=== PATIENT | male | born 1985 | race Caucasian/White ===

== ENCOUNTER 2018-04-15 09:10 | Emergency (ER) | payer SELFPAY ==
--- NOTE | 2018-04-15 09:41 | EDM.PDOC ---
ED HPI GENERAL MEDICAL PROBLEM - General Chief Complaint: Skin Complaint Stated Complaint: RASH ALL OVER PT'S BODY Time Seen by Provider: 04/15/18 09:21 Source of Information: Reports: Patient History Limitations: Reports: No Limitations - History of Present Illness INITIAL COMMENTS - FREE TEXT/NARRATIVE: Guillaume Espinosa is a 32 y/o male presenting to the ER complaining of a rash. He states that he noticed on Wednesday a small rash showing up on anterior chest area and then has spread in dermatomal pattern to the back. Burning sensation and painful. Has tried Aleve with minimal relieve. No sick contacts. No chest pain , radiation to left neck, arm. No vomiting or abdominal pain. No rashes anywhere else. No new joint pains. Right Chest Pain Score (Numeric/FACES): 8 - Related Data Allergies Allergy/AdvReac Type Severity Reaction Status Date / Time No Known Allergies Allergy Verified 04/15/18 09:22 Home Meds: Home Meds Lidocaine [Lidocaine Pain Relief] 1 each TP DAILY PRN #5 adh..patch 04/15/18 [Rx ] valACYclovir [Valtrex] 1,000 mg PO TID 7 Days #21 tab 04/15/18 [Rx] Past Medical History - Infectious Disease History Infectious Disease History: Reports: Chicken Pox - Past Surgical History Other Respiratory Surgeries/Procedures: had many surgeries as a Other GI Surgeries/Procedures: had many surgeries as a Social & Family History - Family History Family Medical History: Noncontributory - Tobacco Use Smoking Status *Q: Current Every Day Smoker Years of Tobacco use: 19 Packs/Tins Daily: 1 - Caffeine Use Caffeine Use: Reports: Coffee - Recreational Drug Use Recreational Drug Use: Yes Drug Use in Last 12 Months: No ED ROS GENERAL - Review of Systems Review Of Systems: See Below Constitutional: Reports: No Symptoms HEENT: Reports: No Symptoms Respiratory: Reports: No Symptoms Cardiovascular: Reports: No Symptoms Endocrine: Reports: No Symptoms GI/Abdominal: Reports: No Symptoms : Reports: No Symptoms Musculoskeletal: Reports: No Symptoms Skin: Reports: Rash Neurological: Reports: No Symptoms Psychiatric: Reports: No Symptoms ED EXAM, SKIN/RASH Exam: See Below Exam Limited By: No Limitations General Appearance: Alert, WD/WN, No Apparent Distress Throat/Mouth: Normal Inspection, Normal Lips, Normal Teeth, Normal Gums, Normal Oropharynx, Normal Voice, No Airway Compromise Head: Atraumatic, Normocephalic Neck: Normal Inspection, Supple, Non-Tender, Full Range of Motion Respiratory/Chest: No Respiratory Distress, Lungs Clear, Normal Breath Sounds, No Accessory Muscle Use, Chest Non-Tender Cardiovascular: Normal Peripheral Pulses, Regular Rate, Rhythm, No Edema, No Gallop, No JVD, No Murmur, No Rub GI/Abdominal: Normal Bowel Sounds, Soft, Non-Tender, No Organomegaly, No Distention, No Abnormal Bruit, No Mass Back Exam: Other (There is a dematomal pattern rash on his back extending to anterior chest.) Extremities: Normal Inspection, Normal Range of Motion, Non-Tender, No Pedal Edema, Normal Capillary Refill Neurological: Alert, Oriented, CN II-XII Intact, Normal Cognition, Normal Gait, Normal Reflexes, No Motor/Sensory Deficits Skin: Warm, Dry, Zoster-Like Rash (Zoster like rahs on dermatomal pattern from anterior to posterior right chest.) Location, Skin: Chest, Back Course - Vital Signs Last Recorded V/S: Last Vital Signs Temp 36.3 C 04/15/18 09:19 Pulse 74 04/15/18 09:19 Resp 16 04/15/18 09:19 BP 129/78 04/15/18 09:19 Pulse Ox 97 04/15/18 09:19 Departure - Departure Time of Disposition: 09:41 Disposition: Home, Self-Care 01 Clinical Impression: Shingles rash Qualifiers: Herpes zoster complications: without complications Qualified Code(s): B02.9 - Zoster without complications - Discharge Information *PRESCRIPTION DRUG MONITORING PROGRAM REVIEWED*: Not Applicable *COPY OF PRESCRIPTION DRUG MONITORING REPORT IN PATIENT RAIMUNDO: Not Applicable Instructions: Shingles, [id number] Referrals: PCP,None [Primary Care Provider] - Additional Instructions: Take medication as indicated. Follow-up with Dr. Fox in 1-2 weeks at [facility].
== END 2018-04-15 10:00 | disposition home or self-care (01) ==
LOC: MW.ED 09:10
DX: B02.9 Zoster without complications (principal); F17.210 Nicotine dependence, cigarettes, uncomplicated; Z79.899 Other long term (current) drug therapy
CPT/HCPCS: 99282

== ENCOUNTER 2018-11-08 16:01 | Emergency (ER) | payer SELFPAY ==
[2018-11-08] MEDS ORDERED: Albuterol/Ipratropium 3.0-0.5 MG/3 ML Neb Soln NEB ONE (16:30)
--- NOTE | 2018-11-08 16:35 | EDM.PDOC ---
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 The patient says he will get coughing and sometimes he will almost vomit because of the coughing spasms but he is not vomiting without the cough. He has no diarrhea no abdominal pain. Has no chest pain or shortness of breath except for the cough. He is eating and drinking normally and he does work out of doors. 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 Patient has been eating and drinking normally the patient did not get his influenza shot this year Review of systems: As per history of present illness and below otherwise all systems reviewed and negative. Past medical history: As per history of present illness and as reviewed below otherwise noncontributory. Surgical history: As per history of present illness and as reviewed below otherwise noncontributory. Social history: No reported history of drug or alcohol abuse. Family history: As per history of present illness and as reviewed below otherwise noncontributory. Physical exam: General: Well-developed well-nourished man who is nontoxic and speaks clearly in the ED without breathlessness or nasal quality to voice. Vital signs are reviewed by me HEENT: Atraumatic, normocephalic, pupils reactive, negative for conjunctival pallor or scleral icterus, mucous membranes moist, throat clear of exudates but there is posterior oropharyngeal erythema, uvula is midline, there is some anterior cervical adenopathy right greater than left but no posterior adenopathy and no nuchal rigidity, the turbinates are boggy bilaterally but there is no discrete sinus tenderness,, neck supple, nontender, trachea midline. Lungs: Bilateral rhonchi and expiratory wheezing without work of breathing or stridor,, breath sounds equal bilaterally, chest nontender. Heart: S1S2, regular rate and rhythm no overt murmurs Abdomen: Soft, nondistended, nontender. NABS. Pelvis: Deferred Genitourinary: Deferred. Rectal: Deferred. Extremities: Atraumatic, full range of motion without defects or deficits Neurovascular unremarkable. Neuro: Awake, alert, oriented. Cranial nerves II through XII unremarkable. Cerebellum unremarkable. Motor and sensory unremarkable throughout. Exam nonfocal. Diagnostics: Rapid strep influenza swab chest x-ray Therapeutics: Duo neb prednisone spacer and spacer teaching After the nebulizer treatment the patient is much improved with only a fine expiratory squeak at the bases and better air exchange and he overall feels improved. He is aware of testing results and care plan for home including albuterol inhaler with spacer prednisone and Tessalon Perles for cough. Because of his history of drug use in the past he would like to avoid anything that mood altering so I'll only give him the Tessalon. I've advised him on reduction of tobacco use and need for follow-up as well as pushing hydration Impression: Acute bronchitis Definitive disposition and diagnosis as appropriate pending reevaluation and review of above. Throat Pain Score (Numeric/FACES): 3 - Related Data Allergies Allergy/AdvReac Type Severity Reaction Status Date / Time No Known Allergies Allergy Verified 11/08/18 16:14 Home Meds: Home Meds . [No Known Home Meds] 11/08/18 [History] Past Medical History - Infectious Disease History Infectious Disease History: Reports: Shingles - Past Surgical History Other Respiratory Surgeries/Procedures: had many surgeries as a Other GI Surgeries/Procedures: had many surgeries as a Social & Family History - Family History Family Medical History: Noncontributory - Tobacco Use Smoking Status *Q: Current Every Day Smoker Years of Tobacco use: 14 Packs/Tins Daily: 0.5 - Caffeine Use Caffeine Use: Reports: Coffee - Recreational Drug Use Recreational Drug Use: No ED ROS GENERAL - Review of Systems Review Of Systems: ROS reveals no pertinent complaints other than HPI. ED EXAM, GENERAL - Physical Exam Exam: See Below (See dictation) Course - Vital Signs Last Recorded V/S: Last Vital Signs Temp 35.6 C 11/08/18 16:15 Pulse 81 11/08/18 16:15 Resp 16 11/08/18 16:15 BP 178/58 H 11/08/18 16:15 Pulse Ox 96 11/08/18 16:38 - Orders/Labs/Meds Orders: Active Orders 24 hr Category Date Time Status Communication Order [RC] STAT Care 11/08/18 17:28 Ordered RT Aerosol Therapy [RC] ASDIRECTED Care 11/08/18 16:31 Active CULTURE STREP A CONFIRMATION [RM] Stat Lab 11/08/18 16:36 Results STREP SCRN A RAPID W CULT CONF [RM] Stat Lab 11/08/18 16:36 Results Meds: Medications Discontinued Medications Generic Name Dose Route Start Last Admin Trade Name Freq PRN Reason Stop Dose Admin Albuterol/Ipratropium 3 ml 11/08/18 16:30 11/08/18 16:37 Duoneb 3.0-0.5 Mg/3 Ml NEB 11/08/18 16:31 3 ml ONETIME ONE Administration Prednisone 20 mg 11/08/18 17:28 Prednisone PO 11/08/18 17:29 ONETIME ONE Departure - Departure Time of Disposition: 17:33 Disposition: Home, Self-Care 01 Condition: Good Clinical Impression: Acute bronchitis Qualifiers: Bronchitis organism: unspecified organism Qualified Code(s): J20.9 - Acute bronchitis, unspecified - Discharge Information Referrals: PCP,Unknown [Primary Care Provider] - Forms: ED Department Discharge Additional Instructions: The following information is given to patients seen in the emergency department who are being discharged to home. This information is to outline your options for follow-up care. We provide all patients seen in our emergency department with a follow-up referral. The need for follow-up, as well as the timing and circumstances, are variable depending upon the specifics of your emergency department visit. If you don't have a primary care physician on staff, we will provide you with a referral. We always advise you to contact your personal physician following an emergency department visit to inform them of the circumstance of the visit and for follow-up with them and/or the need for any referrals to a consulting specialist. The emergency department will also refer you to a specialist when appropriate. This referral assures that you have the opportunity for followup care with a specialist. All of these measure are taken in an effort to provide you with optimal care, which includes your followup. Under all circumstances we always encourage you to contact your private physician who remains a resource for coordinating your care. When calling for followup care, please make the office aware that this follow-up is from your recent emergency room visit. If for any reason you are refused follow-up, please contact the [facility] emergency department at and ask to speak to the emergency department charge nurse. [facility] Primary care- Internal Medicine and Family [address] [id number] Push hydration such as water juices and Gatorade and try to avoid caffeinated products. Reduce and/or eliminate tobacco use. His medications as prescribed and use your albuterol inhaler with a spacer you have been given today every 6 hours for the next 2 days and then every 6 hours as needed. Use cool mist humidifier at sleep times and try to avoid exposure to extreme cold. Please call and connect with one of our providers in the clinic for further care and reevaluation and return to ER as needed and as discussed - My Orders Last 24 Hours: My Active Orders 11/08/18 16:31 RT Aerosol Therapy [RC] ASDIRECTED 11/08/18 16:36 CULTURE STREP A CONFIRMATION [RM] Stat STREP SCRN A RAPID W CULT CONF [RM] Stat 11/08/18 17:28 Communication Order [] STAT - Assessment/Plan Last 24 Hours: My Active Orders 11/08/18 16:31 RT Aerosol Therapy [RC] ASDIRECTED 11/08/18 16:36 CULTURE STREP A CONFIRMATION [RM] Stat STREP SCRN A RAPID W CULT CONF [RM] Stat 11/08/18 17:28 Communication Order [] STAT
--- NOTE | 2018-11-08 17:23 | CR ---
INDICATION: Dyspnea, lightheaded TECHNIQUE: Chest 2 views. COMPARISON: None FINDINGS: Cardiovascular and mediastinum: Heart size and vasculature are normal in caliber and appearance. Mediastinum is within normal limits. Lungs and pleural spaces: Calcified granuloma in the left upper lobe. Lungs are otherwise clear. No sign of pleural effusion. No pneumothorax. Bones and soft tissues: No significant findings. IMPRESSION: No sign of acute disease. Dictated by Mere Whitlock MD @ Nov 08 2018 5:22PM Signed by Dr. Mere Whitlock @ Nov 08 2018 5:22PM
[2018-11-08] MEDS ORDERED: predniSONE 20 MG Tab PO ONE (17:28)
== END 2018-11-08 17:40 | disposition home or self-care (01) ==
LOC: MW.ED 16:01
DX: J20.9 Acute bronchitis, unspecified (principal); F17.210 Nicotine dependence, cigarettes, uncomplicated
CPT/HCPCS: 71046; 87081; 87804; 87880; 94640; 99283; A9270; J7620-GY

== ENCOUNTER 2021-03-17 12:05 | Emergency (ER) | payer SELFPAY ==
--- NOTE | 2021-03-17 14:08 | EDM.PDOC ---
ED HPI GENERAL MEDICAL PROBLEM - General Chief Complaint: ENT Problem Stated Complaint: SORE THROAT, CHILLS, SWEATS Time Seen by Provider: 03/17/21 12:07 Source of Information: Reports: Patient History Limitations: Reports: No Limitations - History of Present Illness INITIAL COMMENTS - FREE TEXT/NARRATIVE: HISTORY AND PHYSICAL: History of present illness: Patient is a 35-year-old male who presents to the ED today with concern of sore throat x2 days. Patient states that he is also been having chills off and on and feels like he has some sweats associated with the chills but states that he has not had a fever at home. Patient states that he has had a harder time with solid foods but has been able to eat and drink softer and liquid foods. Patient denies any other symptoms or concerns. Patient denies chest pain, shortness of breath, or cough. Denies headache, neck stiff ness, change in vision, syncope, or near syncope. Denies nausea, vomiting, abdominal pain, diarrhea, constipation, or dysuria. Has not noted any blood in urine or stool. Patient has been eating and drinking appropriately. Review of systems: As per history of present illness and below otherwise all systems reviewed and negative. Past medical history: As per history of present illness and as reviewed below otherwise noncontributory. Surgical history: As per history of present illness and as reviewed below otherwise noncontributory. Social history: See social history for further information Family history: As per history of present illness and as reviewed below otherwise noncontrib utory. Physical exam: General: Patient is alert, oriented, and in no acute distress. Patient sitting comfortably on exam table. Vitals stable and reviewed by me HEENT: Atraumatic, normocephalic, pupils equal and reactive bilaterally, negative for conjunctival pallor or scleral icterus, mucous membranes moist, TMs normal bilaterally, throat is erythematous with mildly enlarged tonsils that are equal with white exudate bilaterally, uvula midline, neck supple, nontender, trachea midline. No drooling or trismus noted. No meningeal signs. No hot potato voice noted. Lungs: Clear to auscultation, breath sounds equal bilaterally, chest nontender. Heart: S1S2, regular rate and rhythm without overt murmur Abdomen: Soft, nondistended, nontender. Negative for masses or hepatosplenomegaly. Negative for costovertebral tenderness. Pelvis: Stable nontender. Genitourinary: Deferred. Rectal: Deferred. Skin: Intact, warm, dry. No lesions or rashes noted. Extremities: Atraumatic, negative for cords or calf pain. Neurovascular unremarkable. Neuro: Awake, alert, oriented. Cranial nerves II through XII unremarkable. Cerebellum unremarkable. Motor and sensory unremarkable throughout. Exam nonfocal. Notes: Signs and symptoms are prompt return to the ED thoroughly discussed with patient. Discussed importance for follow-up with a primary care provider. Voices understanding and is agreeable to plan of care. Denies any further questions or concerns at this time. Diagnostics: Strep Therapeutics: None Prescription: Amoxicillin Impression: Pharyngitis Plan: 1. Use cough drops and/or other over the counter medications as needed for throat discomfort as discussed. Drink small but frequent sips of fluid to prevent dehydration. 2. Alternate Ibuprofen and Tylenol as directed for pain and discomfort. 3. Follow up with your primary care provider as discussed. 4. Return to the ED as needed and as discussed. Definitive disposition and diagnosis as appropriate pending reevaluation and review of above. throat Pain Score (Numeric/FACES): 3 - Related Data Allergies Allergy/AdvReac Type Severity Reaction Status Date / Time No Known Allergies Allergy Verified 03/17/21 12:24 Home Meds: Home Meds Amoxicillin 1,000 mg PO DAILY 10 Days #30 tablet 03/17/21 [Rx] Past Medical History - Past Health History Medical/Surgical History: Denies Medical/Surgical History - Infectious Disease History Infectious Disease History: Reports: Chicken Pox, Shingles - Past Surgical History Other Respiratory Surgeries/Procedures: had many surgeries as a Other GI Surgeries/Procedures: had many surgeries as a Social & Family History - Family History Family Medical History: No Pertinent Family History - Tobacco Use Tobacco Use Status *Q: Current Every Day Tobacco User Years of Tobacco use: 12 Packs/Tins Daily: 1 - Caffeine Use Caffeine Use: Reports: Coffee - Recreational Drug Use Recreational Drug Use: No ED ROS GENERAL - Review of Systems Review Of Systems: Comprehensive ROS is negative, except as noted in HPI. ED EXAM, GENERAL - Physical Exam Exam: See Below (see dictation) Course - Vital Signs Last Recorded V/S: Last Vital Signs Temp 98.2 F 03/17/21 13:55 Pulse 84 03/17/21 13:55 Resp 20 03/17/21 13:55 BP 136/72 03/17/21 13:55 Pulse Ox 98 03/17/21 13:55 - Orders/Labs/Meds Labs: Laboratory Tests 03/17/21 Range/Units 12:41 Group A Strep (PCR) NOT DETECTED (NOT DETECT) Departure - Departure Time of Disposition: 14:08 Disposition: Home, Self-Care 01 Clinical Impression: Pharyngitis Qualifiers: Pharyngitis/tonsillitis etiology: unspecified etiology Qualified Code(s): J02.9 - Acute pharyngitis, unspecified - Discharge Information Prescriptions: Amoxicillin 1,000 mg PO DAILY 10 Days #30 tablet Referrals: PCP,None [Primary Care Provider] - Forms: ED Department Discharge Additional Instructions: The following information is given to patients seen in the emergency department who are being discharged to home. This information is to outline your options for follow-up care. We provide all patients seen in our emergency department with a follow-up referral. The need for follow-up, as well as the timing and circumstances, are variable depending upon the specifics of your emergency department visit. If you don't have a primary care physician on staff, we will provide you with a referral. We always advise you to contact your personal physician following an emergency department visit to inform them of the circumstance of the visit and for follow-up with them and/or the need for any referrals to a consulting specialist. The emergency department will also refer you to a specialist when appropriate. This referral assures that you have the opportunity for follow-up care with a specialist. All of these measure are taken in an effort to provide you with optimal care, which includes your follow-up. Under all circumstances we always encourage you to contact your private physician who remains a resource for coordinating your care. When calling for follow-up care, please make the office aware that this follow-up is from your recent emergency room visit. If for any reason you are refused follow-up, please contact the [facility] Emergency Department at and asked to speak to the emergency department charge nurse. [facility] Primary [facility] [address] [place] [id number] [facility] [address] [place] [address] 1. Use cough drops and/or other over the counter medications as needed for throat discomfort as discussed. Drink small but frequent sips of fluid to prevent dehydration. 2. Alternate Ibuprofen and Tylenol as directed for pain and discomfort. 3. Follow up with your primary care provider as discussed. 4. Return to the ED as needed and as discussed. Sepsis Event Note (ED) - Evaluation Sepsis Screening Result: No Definite Risk - Focused Exam Vital Signs: Vital Signs Temp Pulse Resp BP Pulse Ox 03/17/21 13:55 98.2 F 84 20 136/72 98 03/17/21 13:10 64 18 121/68 98 03/17/21 12:22 98.1 F 77 16 118/69 97
== END 2021-03-17 14:30 | disposition home or self-care (01) ==
LOC: MW.ED 12:05
DX: J02.9 Acute pharyngitis, unspecified (principal); Z72.0 Tobacco use
CPT/HCPCS: 87651-QW; 99283

== ENCOUNTER 2023-02-01 09:52 | Emergency (ER) | payer BC, MEDICAID ==
[2023-02-01] MEDS ORDERED: Orphenadrine 60 MG/2 ML Inj IM ONE (10:16)
[2023-02-01] MEDS ORDERED: Ketorolac 60 MG/2 ML SDV IM ONE (10:16)
== END 2023-02-01 10:55 | disposition home or self-care (01) ==
LOC: MW.ED 09:52
DX: S16.1XXA Strain of muscle, fascia and tendon at neck level, initial encounter (principal); X50.1XXA Overexertion from prolonged static or awkward postures, initial encounter
CPT/HCPCS: 99283

== ENCOUNTER 2025-03-07 20:39 | Emergency (ER) | payer SELFPAY | END 2025-03-07 21:42 | disposition home or self-care (01) | LOC: MW.ED 20:39 | DX: S80.812A Abrasion, left lower leg, initial encounter (principal); L40.9 Psoriasis, unspecified; H10.9 Unspecified conjunctivitis; F17.200 Nicotine dependence, unspecified, uncomplicated; Z79.899 Other long term (current) drug therapy; X58.XXXA Exposure to other specified factors, initial encounter | CPT/HCPCS: 99282 ==

== ENCOUNTER 2025-04-08 10:16 | Emergency (ER) | payer SELFPAY ==
[2025-04-08] MEDS: Tetracaine HCl/PF 0.5% 4 ML Bottle EYEBOTH ONE (10:46)
== END 2025-04-08 12:10 | disposition home or self-care (01) ==
LOC: MW.ED 10:16
DX: T15.01XA Foreign body in cornea, right eye, initial encounter (principal); Z87.891 Personal history of nicotine dependence; Z79.899 Other long term (current) drug therapy; Z75.3 Unavailability and inaccessibility of health-care facilities; W45.8XXA Other foreign body or object entering through skin, initial encounter
CPT/HCPCS: 99283; A9270; 99282; J3490

== ENCOUNTER 2025-08-03 12:44 | Emergency (ER) | payer BC | END 2025-08-03 14:33 | disposition home or self-care (01) | LOC: MW.ED 12:44 | DX: J06.9 Acute upper respiratory infection, unspecified (principal); Z79.899 Other long term (current) drug therapy; Z75.3 Unavailability and inaccessibility of health-care facilities | CPT/HCPCS: 71045; 87428; 87651; 94640; 99284; J3535; 99283; A9270-GY ==